=== PATIENT | female | born 1985 | race American Indian/Alaskan Native ===

== ENCOUNTER 2018-01-23 23:10 | Emergency (ER) | payer OTHER ==
[2018-01-23 23:41] VITALS: BP 128/83
[2018-01-24] MEDS ORDERED: TORADOL IM ONE (02:06)
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
== END 2018-01-24 02:35 | disposition home or self-care (01) ==
LOC: ED 23:10
DX: S33.5XXA Sprain of ligaments of lumbar spine, initial encounter (principal); S13.4XXA Sprain of ligaments of cervical spine, initial encounter; M79.604 Pain in right leg; Z86.2 Personal history of diseases of the blood and blood-forming organs and certain disorders involving the immune mechanism; F17.200 Nicotine dependence, unspecified, uncomplicated; Z98.51 Tubal ligation status; V87.7XXA Person injured in collision between other specified motor vehicles (traffic), initial encounter; Y93.89 Activity, other specified; Y99.8 Other external cause status; Y92.410 Unspecified street and highway as the place of occurrence of the external cause
CPT/HCPCS: 96372; 99282; J1885

== ENCOUNTER 2019-01-03 19:23 | Emergency (ER) | payer MEDICAID, OTHER ==
[2019-01-03 20:17] LABS: Basophils # (Auto) 0.1 K/mm3 (0.0-0.1); Basophils % (Auto) 0.8 % (0.0-1.8); Eosinophils % (Auto) 0.3 % (0.0-4.3); Hematocrit 38.3 % (30.3-42.9); Hemoglobin 12.4 gm/dl (10.1-14.3); Lymphocytes # (Auto) 2.3 K/mm3 (1.2-5.4); Lymphocytes % (Auto) 21.1 % (13.4-35.0); Mean Corpuscular HGB Conc 33 % (30-34); Mean Corpuscular Volume 84 fl (79-97); Monocytes # (Auto) 0.9 K/mm3 (0.0-0.8); Monocytes % (Auto) 8.3 % (0.0-7.3); Platelet Count 392 K/mm3 (140-440); Red Blood Count 4.55 M/mm3 (3.65-5.03); Red Cell Distribution Width 17.7 % (13.2-15.2)
[2019-01-03 20:22] LABS: BUN/Creatinine Ratio 16; Blood Urea Nitrogen 11 mg/dL (7-17); Calcium 9.6 mg/dL (8.4-10.2); Hemolysis Index 6
[2019-01-03 21:11] LABS: Bilirubin,Urine NEG (Negative); Blood,Urine LG (Negative); Color,Urine Yellow (Yellow); Hyaline Casts,Urine 3 /LPF; Mucus,Urine 3+ /HPF
[2019-01-03 21:15] LABS: HCG Qualitative,Urine Negative (Negative)
[2019-01-04] MEDS ORDERED: K-DUR PO ONE (01:02)
--- NOTE | 2019-01-04 01:02 | Emergency Department Report ---
ED Female HPI - General Chief complaint: Abdominal Pain Stated complaint: VAGINAL BLEEDING Source: patient Mode of arrival: Ambulatory Limitations: No Limitations - History of Present Illness Initial comments: This is a 33-year-old female who presents with diffuse abdominal cramping and vaginal bleeding for 2 days. Patient reports her last menstrual period was 11/28/2018, 78. She started bleeding yesterday with diffuse abdominal pain. Patient reports a tubal ligation and concern for possible because she missed a period last month. She control. Patient states bleeding started out as spotting and is progressed pets today. She is change in past but normal rate. She denies passing clots, low back pain, vaginal discharge, urinary frequency, urgency, or dysuria. MD Complaint: vaginal bleeding Onset/Timin -: days(s) Location: other (diffuse abdominal cramping) Radiation: non-radiating Severity: mild Severity scale (0 -10): 3 Quality: cramping Consistency: intermittent Improves with: none Worsens with: none Are you Now?: No Last Menstrual Period: 01/03/19 EDC: 10/10/19 Associated Symptoms: vaginal bleeding, abdominal pain. denies: vaginal discharge, nausea/vomiting, fever/chills, headaches, loss of appetite, dysuria, hematuria, rash, seizure, shortness of breath, syncope, weakness - Related Data Sexually active: Yes : 5 Para: 5 A: 0 Previous Rx's Medication Instructions Recorded Last Taken Type Hydrocodone Bit/Acetaminophen 1 each PO Q6HR PRN #10 tablet 08/19/13 Unknown Rx [Vicodin 5/500] Naproxen Sodium [Aleve] 220 mg PO Q8H PRN #50 tablet 08/19/13 Unknown Rx metroNIDAZOLE [Flagyl] 500 mg PO BID #14 tablet 10/27/13 Unknown Rx Naproxen [Naprosyn] 375 mg PO BID #20 tablet 01/24/18 Unknown Rx methOCARBAMOL [Robaxin TAB] 500 mg PO BID #10 tab 01/24/18 Unknown Rx Ibuprofen [Motrin 800 MG tab] 800 mg PO Q8HR PRN #20 tablet 01/04/19 Unknown Rx Allergies Allergy/AdvReac Type Severity Reaction Status Date / Time No Known Allergies Allergy Verified 08/19/13 02:01 ED Review of Systems ROS: Stated complaint: VAGINAL BLEEDING Other details as noted in HPI Constitutional: denies: chills, fever Respiratory: denies: cough, shortness of breath, wheezing Cardiovascular: denies: chest pain, palpitations Gastrointestinal: denies: abdominal pain, nausea, diarrhea Genitourinary: abnormal menses. denies: urgency, dysuria, discharge Musculoskeletal: denies: back pain, joint swelling, arthralgia Skin: denies: rash, lesions Neurological: denies: headache, weakness, paresthesias Psychiatric: denies: anxiety, depression ED Past Medical Hx - Past Medical History Additional medical history: anemia - Surgical History Additional Surgical History: Delivered her children, tubal ligation - Social History Smoking Status: Current Every Day Smoker Substance Use Type: None - Medications Home Medications: Home Medications Medication Instructions Recorded Confirmed Last Taken Type Hydrocodone Bit/Acetaminophen 1 each PO Q6HR PRN #10 tablet 08/19/13 Unknown Rx [Vicodin 5/500] Naproxen Sodium [Aleve] 220 mg PO Q8H PRN #50 tablet 08/19/13 Unknown Rx metroNIDAZOLE [Flagyl] 500 mg PO BID #14 tablet 10/27/13 Unknown Rx Naproxen [Naprosyn] 375 mg PO BID #20 tablet 01/24/18 Unknown Rx methOCARBAMOL [Robaxin TAB] 500 mg PO BID #10 tab 01/24/18 Unknown Rx Ibuprofen [Motrin 800 MG tab] 800 mg PO Q8HR PRN #20 tablet 01/04/19 Unknown Rx ED Physical Exam - General Limitations: No Limitations General appearance: alert, in no apparent distress - Respiratory Respiratory exam: Present: normal lung sounds bilaterally. Absent: respiratory distress - Cardiovascular Cardiovascular Exam: Present: regular rate, normal rhythm. Absent: systolic murmur, diastolic murmur, rubs, gallop - GI/Abdominal GI/Abdominal exam: Present: soft, normal bowel sounds. Absent: distended, tenderness, guarding, rebound, rigid, organomegaly, mass, bruit, pulsatile mass - Back Exam Back exam: Absent: CVA tenderness (R), CVA tenderness (L) - Neurological Exam Neurological exam: Present: alert, oriented X3, normal gait - Psychiatric Psychiatric exam: Present: normal affect, normal mood - Skin Skin exam: Present: warm, dry, intact, normal color. Absent: rash ED Medical Decision Making - Lab Data Result diagrams: 01/03/19 19:50 04/05/19 19:50 Lab Results 01/03/19 01/03/19 01/03/19 Range/Units 19:50 19:50 20:45 WBC 10.8 (4.5-11.0) K/mm3 RBC 4.55 (3.65-5.03) M/mm3 Hgb 12.4 (10.1-14.3) gm/dl Hct 38.3 (30.3-42.9) % MCV 84 (79-97) fl MCH 27 L (28-32) pg MCHC 33 (30-34) % RDW 17.7 H (13.2-15.2) % Plt Count 392 (140-440) K/mm3 Lymph % (Auto) 21.1 (13.4-35.0) % [place] % (Auto) 8.3 H (0.0-7.3) % Eos % (Auto) 0.3 (0.0-4.3) % Baso % (Auto) 0.8 (0.0-1.8) % Lymph # 2.3 (1.2-5.4) K/mm3 [place] # 0.9 H (0.0-0.8) K/mm3 Eos # 0.0 (0.0-0.4) K/mm3 Baso # 0.1 (0.0-0.1) K/mm3 Seg Neutrophils % 69.5 (40.0-70.0) % Seg Neutrophils # 7.5 (1.8-7.7) K/mm3 Sodium 135 L (137-145) mmol/L Potassium 3.2 L (3.6-5.0) mmol/L Chloride 102.5 (98-107) mmol/L Carbon Dioxide 19 L (22-30) mmol/L Anion Gap 17 mmol/L BUN 11 (7-17) mg/dL Creatinine 0.7 (0.7-1.2) mg/dL Estimated GFR > 60 ml/min BUN/Creatinine Ratio 16 % Glucose 114 H (65-100) mg/dL Calcium 9.6 (8.4-10.2) mg/dL Urine Color Yellow (Yellow) Urine Turbidity Clear (Clear) Urine pH 5.0 (5.0-7.0) Ur Specific [place] 1.033 H (1.003-1.030) Urine Protein 30 mg/dl (Negative) mg/dL Urine Glucose (UA) Neg (Negative) mg/dL Urine Ketones 20 (Negative) mg/dL Urine Blood Lg (Negative) Urine Nitrite Neg (Negative) Urine Bilirubin Neg (Negative) Urine Urobilinogen 2.0 (<2.0) mg/dL Ur Leukocyte Esterase Tr (Negative) Urine WBC (Auto) 3.0 (0.0-6.0) /HPF Urine RBC (Auto) 76.0 (0.0-6.0) /HPF U Epithel Cells (Auto) 2.0 (0-13.0) /HPF Hyaline Casts 3 /LPF Urine Mucus 3+ /HPF Urine HCG, Qual Negative (Negative) - Medical Decision Making Patient was examined by me. Vitals are normal and patient is in no acute distress. Obtained CBC, BMP, urinalysis, urine hCG. Hypokalemia. Given Klor- Con 40 mEq by mouth once while in ER. All of the labs are unremarkable. Patient informed of negative test. There is a large amount of blood on urinalysis. Informed of signs of menses. Start ibuprofen 600 mg by mouth every 6 hours as needed for pain. Femoral to gynecology for continued care. Plan discussed with patient to discharge home and treat outpatient. She agrees with ER plan. Patient discharged home in stable condition. Follow up with PCP or gynecology is symptoms are not improving and is discussed. Critical care attestation.: If time is entered above; I have spent that time in minutes in the direct care of this critically ill patient, excluding procedure time. ED Disposition Clinical Impression: Dysmenorrhea, Vaginal bleeding, Abdominal cramping, Hypokalemia Disposition: DC- TO HOME OR SELFCARE Is pt being admited?: No Does the pt Need Aspirin: No Condition: Stable Instructions: Abdominal Pain (ED), Dysmenorrhea (ED) Additional Instructions: Headache pain medication every 6-8 hours as needed. Follow-up with pedicurist for continued care. Return to the emergency room if increased vaginal bleeding, sharp abdominal p ain, low back pain, or fever. Prescriptions: Ibuprofen [Motrin 800 MG tab] 800 mg PO Q8HR PRN #20 tablet PRN Reason: Pain , Severe (7-10) Referrals: CODY PATTERSON MD [Primary Care Provider] - 3-5 Days [facility] [Provider Group] - 3-5 Days [facility] [Provider Group] - 3-5 Days [facility] [Provider Group] - 3-5 Days Forms: Work/School Release Form(ED) Time of Disposition: 01:12
[2019-01-04 02:44] VITALS: BP 124/86
== END 2019-01-04 01:20 | disposition home or self-care (01) ==
LOC: ED 19:23
DX: N94.6 Dysmenorrhea, unspecified (principal); E87.6 Hypokalemia; F17.200 Nicotine dependence, unspecified, uncomplicated
CPT/HCPCS: 36415; 80048; 81001; 81025; 85025

== ENCOUNTER 2019-04-19 08:17 | Emergency (ER) | payer MEDICAID ==
[2019-04-19 08:25] VITALS: BP 118/70
[2019-04-19] MEDS ORDERED: IBUPROFEN PO ONE (09:01)
--- NOTE | 2019-04-19 09:01 | Emergency Department Report ---
ED General Adult HPI - General Chief complaint: Extremity Injury, Lower Stated complaint: R ANKLE PAIN/KNOT ON R LEG Time Seen by Provider: 04/19/19 08:45 Source: patient Mode of arrival: Ambulatory Limitations: No Limitations - History of Present Illness Initial comments: This is a 33-year-old female healthy looking in no acute distress ambulating well presents to ED complaining right ankle pain since started afternoon. Patient states that she has surgery and ankle 10 years ago where she has some screws put in. Patient denies any trauma or injuries or falls to the ankle. Patient states that she noticed a little lump on the lateral side of her ankle which is now resolved. She describes been a throbbing aching in nature, she denies deformity or any difficulty walking. - Related Data Previous Rx's Medication Instructions Recorded Last Taken Type Hydrocodone Bit/Acetaminophen 1 each PO Q6HR PRN #10 tablet 08/19/13 Unknown Rx [Vicodin 5/500] Naproxen Sodium [Aleve] 220 mg PO Q8H PRN #50 tablet 08/19/13 Unknown Rx metroNIDAZOLE [Flagyl] 500 mg PO BID #14 tablet 10/27/13 Unknown Rx Naproxen [Naprosyn] 375 mg PO BID #20 tablet 01/24/18 Unknown Rx Ibuprofen [Motrin 800 MG tab] 800 mg PO Q8HR PRN #20 tablet 04/19/19 Unknown Rx methOCARBAMOL [Robaxin TAB] 500 mg PO BID #10 tab 04/19/19 Unknown Rx Allergies Allergy/AdvReac Type Severity Reaction Status Date / Time No Known Allergies Allergy Verified 04/19/19 08:21 ED Review of Systems ROS: Stated complaint: R ANKLE PAIN/KNOT ON R LEG Other details as noted in HPI Comment: All other systems reviewed and negative ED Past Medical Hx - Past Medical History Previous Medical History?: Yes Additional medical history: anemia - Surgical History Past Surgical History?: Yes Additional Surgical History: Delivered her children, tubal ligation - Social History Smoking Status: Never Smoker Substance Use Type: None - Medications Home Medications: Home Medications Medication Instructions Recorded Confirmed Last Taken Type Hydrocodone Bit/Acetaminophen 1 each PO Q6HR PRN #10 tablet 08/19/13 Unknown Rx [Vicodin 5/500] Naproxen Sodium [Aleve] 220 mg PO Q8H PRN #50 tablet 08/19/13 Unknown Rx metroNIDAZOLE [Flagyl] 500 mg PO BID #14 tablet 10/27/13 Unknown Rx Naproxen [Naprosyn] 375 mg PO BID #20 tablet 01/24/18 Unknown Rx Ibuprofen [Motrin 800 MG tab] 800 mg PO Q8HR PRN #20 tablet 04/19/19 Unknown Rx methOCARBAMOL [Robaxin TAB] 500 mg PO BID #10 tab 04/19/19 Unknown Rx ED Physical Exam - General Limitations: No Limitations General appearance: alert, in no apparent distress - Head Head exam: Present: atraumatic, normocephalic - Eye Eye exam: Present: normal appearance - ENT ENT exam: Present: mucous membranes moist - Neck Neck exam: Present: normal inspection - Respiratory Respiratory exam: Present: normal lung sounds bilaterally. Absent: respiratory distress - Cardiovascular Cardiovascular Exam: Present: regular rate, normal rhythm. Absent: systolic murmur, diastolic murmur, rubs, gallop - GI/Abdominal GI/Abdominal exam: Present: soft, normal bowel sounds - Extremities Exam Extremities exam: Present: normal inspection, full ROM, other (right ankle is intact.Scars seen from surgical line. No swelling noted and no erythema and no deformity noted.). Absent: tenderness, joint swelling, calf tenderness - Back Exam Back exam: Present: normal inspection, full ROM - Neurological Exam Neurological exam: Present: alert, oriented X3, normal gait - Psychiatric Psychiatric exam: Present: normal affect, normal mood - Skin Skin exam: Present: warm, dry, intact, normal color. Absent: rash ED Course Vital Signs 04/19/19 08:22 Temperature 98.1 F Pulse Rate 101 H Respiratory 16 Rate Blood Pressure 118/70 [Left] O2 Sat by Pulse 99 Oximetry ED Medical Decision Making - Medical Decision Making 33-year-old female presents with a acute on chronic right ankle pain. Patient is able to ambulate without any problems. Discussed the patient she would need to see an orthopedic doctor. Orthopedic doctor referral given to patient. This discussed pain medication until follow-up. Vital signs are normal patient is in no acute distress she understands instructions given. Discuss continued heat application to the left ankle Critical care attestation.: If time is entered above; I have spent that time in minutes in the direct care of this critically ill patient, excluding procedure time. ED Disposition Clinical Impression: Ankle pain, right Disposition: DC-01 TO HOME OR SELFCARE Is pt being admited?: No Does the pt Need Aspirin: No Condition: Stable Instructions: Arthralgia (ED) Additional Instructions: Make sure to follow up with the primary care physician as discussed. Take all your medications as you've been prescribed. If you have any worsening symptoms or develop new symptoms please return to ED immediately. Prescriptions: Ibuprofen [Motrin 800 MG tab] 800 mg PO Q8HR PRN #20 tablet PRN Reason: Pain , Severe (7-10) methOCARBAMOL [Robaxin TAB] 500 mg PO BID #10 tab Referrals: CONCEPCION FREED MD [Primary Care Provider] - 3-5 Days GISELE MARRERO MD [Staff Physician] - 3-5 Days Forms: Work/School Release Form(ED) Time of Disposition: 09:02
== END 2019-04-19 09:20 | disposition home or self-care (01) ==
LOC: ED 08:17
DX: M25.571 Pain in right ankle and joints of right foot (principal); G89.29 Other chronic pain; Z79.899 Other long term (current) drug therapy; Z79.1 Long term (current) use of non-steroidal anti-inflammatories (NSAID); Z86.2 Personal history of diseases of the blood and blood-forming organs and certain disorders involving the immune mechanism; Z98.51 Tubal ligation status
CPT/HCPCS: 99282

== ENCOUNTER 2020-12-10 15:57 | Emergency (ER) | payer SELFPAY ==
--- NOTE | 2020-12-10 16:03 | Event Note ---
ED Screening Note ED Screening Note: severe lower abd pain tearful in triage has had tubal pos nausea states not worried about std because she was "tested in July." This initial assessment/diagnostic orders/clinical plan/treatment(s) is/are subject to change based on patients health status, clinical progression and re- assessment by fellow clinical providers in the ED. Further treatment and workup at subsequent clinical providers discretion. Patient/guardian urged not to elope from the ED as their condition may be serious if not clinically assessed and managed. Initial orders include: ua labs
[2020-12-10 16:06] VITALS: BP 132/81
[2020-12-10 16:43] LABS: Bilirubin,Urine NEG (Negative); Blood,Urine LG (Negative); Color,Urine Yellow (Yellow); Mucus,Urine FEW /HPF
[2020-12-10 16:44] LABS: RBC,Urine > 182.0 /HPF (0.0-6.0)
[2020-12-10 16:46] LABS: HCG Qualitative,Urine Negative (Negative)
[2020-12-10 16:57] LABS: Hematocrit 36.4 % (30.3-42.9); Hemoglobin 12.3 gm/dl (10.1-14.3); Mean Corpuscular HGB Conc 34 % (30-34); Mean Corpuscular Volume 89 fl (79-97); Platelet Count 355 K/mm3 (140-440); Red Blood Count 4.08 M/mm3 (3.65-5.03); Red Cell Distribution Width 14.1 % (13.2-15.2)
[2020-12-10 17:20] LABS: Alanine Aminotransferase 11 units/L (7-56); Albumin 4.2 g/dL (3.9-5); Blood Urea Nitrogen 12 mg/dL (7-17); Calcium 8.7 mg/dL (8.4-10.2); Hemolysis Index 10
[2020-12-10 17:24] LABS: BUN/Creatinine Ratio 20
== END 2020-12-10 19:06 ==
LOC: ED 15:57
DX: R10.30 Lower abdominal pain, unspecified (principal); Z53.21 Procedure and treatment not carried out due to patient leaving prior to being seen by health care provider
CPT/HCPCS: 36415; 80053; 81001; 81025; 83690; 85027; 87086